=== PATIENT | female | born 1955 | race Caucasian/White ===

== ENCOUNTER 2021-04-16 07:36 | Outpatient (REF) | payer OTHER, SELFPAY ==
--- NOTE | ~2021-04-16 | XR_ITS ---
EXAMINATION: AP BILATERAL KNEE AND LEFT KNEE CLINICAL INFORMATION: Pain left knee. COMPARISON: None TECHNIQUE: AP bilateral knee. Left knee 2 views. FINDINGS: AP STANDING BILATERAL KNEE: There is mild reduction in medial compartment joint space both knees. No visible acute fracture, dislocation or subluxation. The soft tissues are normal LEFT KNEE: 2 views reveal mild reduction in the left knee patellofemoral compartment joint space. No periarticular spurring. No loose bodies. No bony erosive changes. The soft tissues are normal. XR/XR knee standing BI IMPRESSION: Mild degenerative arthritic changes patellofemoral and medial compartment left knee. Mild degenerative changes medial compartment right knee is also noted.
--- NOTE | ~2021-04-16 | XR_ITS ---
EXAMINATION: AP BILATERAL KNEE AND LEFT KNEE CLINICAL INFORMATION: Pain left knee. COMPARISON: None TECHNIQUE: AP bilateral knee. Left knee 2 views. FINDINGS: AP STANDING BILATERAL KNEE: There is mild reduction in medial compartment joint space both knees. No visible acute fracture, dislocation or subluxation. The soft tissues are normal LEFT KNEE: 2 views reveal mild reduction in the left knee patellofemoral compartment joint space. No periarticular spurring. No loose bodies. No bony erosive changes. The soft tissues are normal. XR/XR knee LT 2V IMPRESSION: Mild degenerative arthritic changes patellofemoral and medial compartment left knee. Mild degenerative changes medial compartment right knee is also noted.
== END 2021-04-16 07:37 | disposition home or self-care (01) ==
LOC: HO.HOSX 07:36
PROVIDERS: Visit Provider Orthopaedic Surgery
DX: M25.562 Pain in left knee (principal); M25.561 Pain in right knee
CPT/HCPCS: 20610; 73560; 73565; J1040

== ENCOUNTER 2021-04-30 10:10 | Outpatient (REF) | payer OTHER, SELFPAY | END 2021-04-30 10:11 | disposition home or self-care (01) | LOC: HO.BBR 10:10 | PROVIDERS: PCP Internal Medicine; Visit Provider Internal Medicine Gastroenterology | DX: Z13.89 Encounter for screening for other disorder (principal) ==

== ENCOUNTER 2022-05-08 13:29 | Outpatient (REF) | payer OTHER, SELFPAY | END 2022-05-08 13:30 | disposition home or self-care (01) | LOC: HO.BBR 13:29 | PROVIDERS: Visit Provider Internal Medicine Gastroenterology | DX: Z13.89 Encounter for screening for other disorder (principal) ==